=== PATIENT | female | born 1995 | race Caucasian/White ===

== ENCOUNTER 2020-04-03 19:51 | Emergency (ER) | payer OTHER ==
[~2020-04-03] VITALS: Ht 175.3 cm; Wt 49.0 kg
[2020-04-03 20:21] VITALS: BP 107/65
[2020-04-03] MEDS ORDERED: TYLENOL325 MG ORAL (20:22)
--- NOTE | 2020-04-03 20:23 | Emergency Room Report ---
History of Present Illness General Chief Complaint: Upper Extremity Injury Source: Patient Present Illness HPI 25-year-old female presents with right wrist pain, after a sheet was was pulled from her hands in a closed position yesterday, she notes pain with movement of the wrist, alleviated with rest, severity is mild, patient denies any swelling. 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 Patient History Past Medical History: see triage record Last Menstrual Period: 03/15/20 Now: No : 0 Para: 0 Reviewed Nursing Documentation: PMH: Agreed; PSxH: Agreed Nursing Documentation-PMH Past Medical History: No Stated History Review of Systems All Other Systems: negative except mentioned in HPI Physical Exam Vital Signs Date Time Temp Pulse Resp B/P (MAP) Pulse Ox O2 Delivery O2 Flow Rate FiO2 04/03/20 20:10 98.2 70 18 107/65 (79) 100 Room Air General Appearance: well appearing, no apparent distress Head: normocephalic, atraumatic ENT: hearing grossly normal, normal voice Neck: full range of motion, supple Respiratory: no respiratory distress, speaking full sentences Musculoskeletal: other - Right upper extremity: 2+ radial pulses radial median ulnar nerve intact, 5-5 project estimator strength, no swelling, tenderness to palpation along the ulnar aspect of the wrist, no snuffbox tenderness, no deformity Neurologic: alert, normal gait Psychiatric: mood/affect normal Skin: no rash Medical Decision Making Diagnostic Impression: Primary Impression: Right wrist sprain Qualified Codes: S63.501A - Unspecified sprain of right wrist, initial encounter ER Course 25-year-old female presents with most likely right wrist sprain, x-ray negative , no evidence of fracture dislocation neurovascular exam is unremarkable Wrist splint was provided for comfort disposition home with return precautions follow-up with PCP Patient deferred a test patient is aware of the risks and benefits Other X-Ray Diagnostic Results Other X-Ray Diagnostic Results #1: X-Ray ordered: Right wrist # of Views/Limited Vs Complete: 3 View Indication: Pain EP Interpretation: Yes Interpretation: no dislocation, no soft tissue swelling, no fractures Impression: No acute disease Electronically Signed by: Juan Avendano MD Other X-Ray Diagnostic Results #2: X-Ray ordered: Right Hand # of Views/Limited Vs Complete: 3 View Indication: Pain EP Interpretation: Yes Interpretation: no dislocation, no soft tissue swelling, no fractures Impression: No acute disease Electronically Signed by: Juan Avendano MD Last Vital Signs Date Time Temp Pulse Resp B/P (MAP) Pulse Ox O2 Delivery O2 Flow Rate FiO2 04/03/20 20:10 98.2 70 18 107/65 (79) 100 Room Air Disposition: HOME, SELF-CARE Condition: Stable Scripts Acetaminophen (Tylenol) 325 Mg Tablet 650 MG ORAL Q6H PRN for Prn Pain/Headache/Temp > 101, #30 TAB 0 Refills Prov: Juan Avendano MD 04/03/20 Referrals: [facility] Patient Instructions: Wrist Sprain Additional Instructions: The patient was provided with discharge instructions, notified to follow-up with a primary care doctor and or specialist in the next 24-48 hours, and to return to the ED if they have worsening of their symptoms. Please note that this report is being documented using [employer] technology. This can lead to erroneous entry secondary to incorrect interpretation by the dictating instrument. Juan Avendano MD Apr 03, 2020 20:23
[2020-04-03 20:35] VITALS: BP 107/65
--- NOTE | 2020-04-04 10:08 | Diagnostic Imaging Report ---
EXAM: X-RAY XRAY Wrist Complete R CLINICAL HISTORY: Wrist pain. COMPARISON: None FINDINGS: Total of 3 views of the right wrist were obtained. Alignment is anatomic. There is no fracture, bony lesions or erosions. A bone island is noted in the distal radius. Joint spaces are well-maintained. Surrounding soft tissue is normal. IMPRESSION: NO ACUTE BONY ABNORMALITY.
--- NOTE | 2020-04-04 10:09 | Diagnostic Imaging Report ---
EXAM: X-RAY XRAY Hand Complete R CLINICAL HISTORY: Hand pain. COMPARISON: None FINDINGS: Total of 3 views of the right hand were obtained. Alignment is anatomic. There is no fracture, bony lesions or erosions. Joint spaces are unremarkable. Surrounding soft tissue is normal. IMPRESSION: NO ACUTE BONY ABNORMALITY.
== END 2020-04-03 20:35 | disposition home or self-care (01) ==
LOC: EMR 20:05
DX: S63.501A Unspecified sprain of right wrist, initial encounter (principal); X58.XXXA Exposure to other specified factors, initial encounter; Y92.9 Unspecified place or not applicable
CPT/HCPCS: 29125; 73110; 73130; Z7502; 99284